=== PATIENT | female | born 1995 | race Caucasian/White ===

== ENCOUNTER → 2022-07-20 | Outpatient (CLI) | payer MEDICAID, BC ==
[2022-07-20 22:33] LABS: HCT 37.6 % (37.2-46.3); HGB 12.2 g/dL (12.0-15.0); MCHC 32.4 g/dL (32.0-37.0); MCV 89.5 fL (80.0-97.0); Mean Platelet Volume 10.5 fL (9.5-12.2); NRBC Per 100 WBC 0 /100 WBCS (0.0-0.0); Platelet Count 258 X 10*3/uL (140-440); WBC 7.93 X 10*3/uL (4.50-10.00)
[2022-07-21] LABS: Progesterone <0.05 ng/mL
[2022-07-21 01:53] LABS: Follicle Stimulating Hormone 7.3 mIU/mL; Luteinizing Hormone 20.1 mIU/mL
[2022-07-21 02:49] LABS: Estradiol 78.2 pg/mL; HCG,Quantitative Serum <3.0 (0.0-6.0)
== END | disposition home or self-care (01) ==
LOC: LABWHC1 14:52
PROVIDERS: ATTEND Obstetrics & Gynecology
DX: N91.2 Amenorrhea, unspecified (principal); N97.0 Female infertility associated with anovulation
CPT/HCPCS: 36415; 82670; 83001; 83002; 84144; 84146; 84439; 84443; 84479; 84702; 85027

== ENCOUNTER → 2022-09-10 | Outpatient (CLI) | payer MEDICAID, BC ==
--- NOTE | 2022-09-10 17:33 | US ---
EXAMINATION TYPE: US transvaginal DATE OF EXAM: 09/10/2022 COMPARISON: NONE CLINICAL INDICATION: Female, 27 years old with history of N93.8 DUB; Irregular periods x couple month s TECHNIQUE: Transvaginal exam only per physician order Date of LMP: 09/07/2022 EXAM MEASUREMENTS: Uterus: 7.2 x 3.4 x 4.0 cm Endometrial Stripe: 0.6 cm Right Ovary: 3.2 x 2.4 x 1.8 cm Left Ovary: 2.8 x 1.7 x 3.2 cm 1. Uterus: anteverted 2. Endometrium: appears wnl 3. Right Ovary: wnl 4. Left Ovary: wnl 5. Bilateral Adnexa: left adnexa - 1.1 x 0.7 x 0.9cm anechoic area seen separate from left ovary 6. Posterior cul-de-sac: wnl Unremarkable appearance of the anteverted uterus and endometrium. Both ovaries are within normal limi ts with normal follicles demonstrated. No free fluid identified. Left adnexal 1.1 cm cystic lesion wh ich is separate from the left ovary. IMPRESSION: 1. Unremarkable appearance of the uterus and endometrium and both ovaries. 2. 1.1 cm cystic lesion within the left adnexa separate from the ovary which may represent a paraovar beau cyst. Follow-up ultrasound in 12 weeks is recommended to assess for stability.
== END | disposition home or self-care (01) ==
LOC: RADUSWWP 16:13
PROVIDERS: ATTEND Obstetrics & Gynecology
DX: N93.8 Other specified abnormal uterine and vaginal bleeding (principal); N83.8 Other noninflammatory disorders of ovary, fallopian tube and broad ligament; R10.2 Pelvic and perineal pain
CPT/HCPCS: 76830

== ENCOUNTER 2023-03-08 06:26 | Day surgery (SDC) | payer MEDICAID, BC ==
[~2023-03-08 06:26] MED LIST: ACETAMINOPHEN TAB 500 MG TAB PO PRN; HEPARIN SODIUM,PORCINE/PF 5,000 UNIT/0.5 ML SYRINGE SQ PRN; Pre Op ABX Message 1 EACH MISC MISCELLANE ONE
[2023-03-08] MEDS ORDERED: DEXAMETHASONE SOD PHOSPHATE 4 MG/ML 1 ML VIAL IV ONE (06:38)
[2023-03-08] MEDS ORDERED: ONDANSETRON 4 MG/2 ML VIAL IVP ONE ×2 (06:38→07:12)
[2023-03-08] MEDS ORDERED: LACTATED RINGERS 1,000 ML IV SCH (06:38)
[2023-03-08] MEDS ORDERED: ONDANSETRON 4 MG/2 ML VIAL ONE (06:59)
[2023-03-08] MEDS ORDERED: diphenhydrAMINE 50 MG/ML 1 ML VIAL ONE (06:59)
[2023-03-08] MEDS ORDERED: HYDROmorphone 0.5 MG/0.5 ML SYRINGE IVP PRN (07:00)
[2023-03-08] MEDS ORDERED: DEXAMETHASONE SOD PHOSPHATE 4 MG/ML 1 ML VIAL IVP ONE (07:13)
[2023-03-08] MEDS ORDERED: FAMOTIDINE 20 MG/2 ML VIAL IVP ONE (07:14)
[2023-03-08] MEDS ORDERED: diphenhydrAMINE 50 MG/ML 1 ML VIAL IVP ONE (07:15)
[2023-03-08] MEDS ORDERED: LIDOCAINE 1% INJ 10MG/ML (20 ML MDV) ONE (07:24)
[2023-03-08] MEDS ORDERED: PROPOFOL 10 MG/ML 20 ML VIAL IV ONE (07:24)
[2023-03-08] MEDS ORDERED: KETOROLAC 15 MG/ML 1 ML VIAL ONE (07:24)
[2023-03-08] MEDS ORDERED: MIDAZOLAM 2 MG/2 ML VIAL ONE (07:24)
[2023-03-08] MEDS ORDERED: fentaNYL (PF) 50 MCG/ML 2 ML AMP ONE (07:24)
[2023-03-08 07:26] VITALS: RESP 16
[2023-03-08] MEDS ORDERED: SODIUM CHLORIDE 0.9% 50 ML with ceFAZolin 2,000 MG IV ONE ×2 (07:29)
--- NOTE | 2023-03-08 07:38 | P.GSHP ---
History of Present Illness H&P Date: 03/08/23 Chief Complaint: Left breast mass 28-year-old female seen in December. Patient with a mass left upper outer breast. Increasing in size. Mild pain at times. Past Medical History Past Medical History: No Reported History Additional Past Medical History / Comment(s): Vertigo, sinus issues, menstraul cramps. History of Any Multi-Drug Resistant Organisms: None Reported Past Surgical History: Orthopedic Surgery Additional Past Surgical History / Comment(s): L ankle repair/hardware since removed. Past Anesthesia/Blood Transfusion Reactions: Postoperative Nausea & Vomiting (PONV) Smoking Status: Never smoker - Past Family History Father Family Medical History: Hypertension Mother Additional Family Medical History / Comment(s): hx of breast and colon cancer maternal side Medications and Allergies Home Medications Medication Instructions Recorded Confirmed Type Cetirizine HCl [Zyrtec] 10 mg PO DAILY 11/26/20 03/08/23 History Naproxen Sodium 550 mg PO BID PRN 03/04/23 03/08/23 History Vit No.179/Iron/Folic 1 tab PO QAM 03/04/23 03/08/23 History [ Tablet] Allergies Allergy/AdvReac Type Severity Reaction Status Date / Time No Known Allergies Allergy Verified 03/08/23 07:07 Surgical - Exam Vital Signs Temp Pulse Resp BP Pulse Ox 98.0 F 92 16 120/81 99 03/08/23 07:03 03/08/23 07:03 03/08/23 07:03 03/08/23 07:03 03/08/23 07:03 Physical exam: General: Well-developed, well-nourished HEENT: Normocephalic, sclerae nonicteric Right breast: No masses, no adenopathy Left breast: Lipomatous mass upper outer quadrant near axilla Abdomen: Nontender, nondistended Extremities: No edema Neuro: Alert and oriented Assessment and Plan (1) Left breast mass Narrative/Plan: Will proceed with excision left breast mass this time. Current Visit: Yes Status: Acute Code(s): N63.20 - UNSPECIFIED LUMP IN THE LEFT BREAST, UNSPECIFIED QUADRANT SNOMED Code(s): 89055539
[2023-03-08] MEDS ORDERED: BUPIVACAINE (PF) 0.5% 30 ML VIAL SQ ONE (07:53)
[2023-03-08] MEDS ORDERED: NALOXONE 0.4 MG/ML 1 ML VIAL IV PRN (08:29)
--- NOTE | 2023-03-08 08:32 | P.OP ---
Date of Procedure: 03/08/23 Procedure(s) Performed: PREOPERATIVE DIAGNOSIS: Left breast mass POSTOPERATIVE DIAGNOSIS: Same PROCEDURE: Excision left breast mass SURGEON: Osmin EBL: 2 mL ANESTHESIA: Gen. COMPLICATIONS: None OPERATIVE PROCEDURE: Patient place never table in supine position. The patient's left breast was prepped and draped sterilely. A curvilinear upper outer quadrant incision was made along a skin fold. Subcutaneous tissues were divided using electrocautery. The lipomatous mass was encountered and fully excised using a combination of blunt dissection and cautery. This measured 5 x 3 cm. This was sent to pathology. The subcutaneous tissues closed using 3-0 Vicryl sutures. Skin closed using running 4-0 Monocryl subcu stitch. Skin glue applied. DISPOSITION: Stable to recovery room
[2023-03-08 08:36] VITALS: TEMP 97.1
[2023-03-08 10:10] VITALS: BP 118/78; PULSE 71
== END 2023-03-08 09:41 | disposition home or self-care (01) ==
LOC: OR 06:26
PROVIDERS: ATTEND Surgery
DX: N63.20 Unspecified lump in the left breast, unspecified quadrant (principal); N63.21 Unspecified lump in the left breast, upper outer quadrant
CPT/HCPCS: 11406; 19120; 81025; 88305; J2250; J1200; J1100; J2405; J0690; J2001; J3010; J3490; J1885; J2704; J1644; J0665

== ENCOUNTER → 2023-11-08 | Outpatient (CLI) | payer MEDICAID, BC ==
--- NOTE | 2023-11-08 10:20 | USB ---
Reason for Exam: Clinical finding. Indicated Problems: Skin thickening or retraction of both sides for 1 Month(s). Technique: Method: Targeted. Doppler: Color. Patient Position: Supine. Prior Study Comparison: No prior studies available for comparison. Findings: The lower section of the breast of both breasts, the axilla of both breasts and the retroareolar of both breasts were scanned. There is some diffuse mild edema within the subcutaneous tissues greater along the inferior breasts. Underlying suspicious abnormalities are clearly identified. Within the left breast approximately 4:00 position 8 cm the nipple a vague hypodensity may be present. This is hard to discern a background of may be persistent. Short-term follow-up is recommended. Reassessed following the , approximately 13 weeks. If this remains persistent on ultrasound at that time, consideration for mammography be performed. Note that mammography is limited due to changes. Findings appear more compatible with bilateral breast edema. Bilateral inflammatory carcinoma considered unlikely.. Clinical management recommended. Surgical consultation could be performed for changing clinical findings. Overall Assessment: Probably benign, BI-RAD 3 Management: Diagnostic Breast Ultrasound of the left breast in 3 months. A clinical breast exam by your physician is recommended on an annual basis and results should be correlated with mammographic findings. This exam should not preclude additional follow-up of suspicious palpable abnormalities. Results were given to the patient verbally at the time of exam. Electronically signed and approved by: Suleman Quezada D.O. Radiologis
== END | disposition home or self-care (01) ==
LOC: RADUSWWP 09:25
PROVIDERS: ATTEND Obstetrics & Gynecology
DX: R68.89 Other general symptoms and signs (principal); R23.4 Changes in skin texture

== ENCOUNTER 2024-02-01 04:34 | Inpatient (IN) | payer MEDICAID ==
[2024-02-01] MEDS ORDERED: TERBUTALINE 1 MG/ML VIAL SQ PRN (05:01)
[2024-02-01] MEDS ORDERED: miSOPROStoL 200 MCG TAB PO PRN (05:01)
[2024-02-01] MEDS ORDERED: CARBOPROST TROMETHAMINE 250 MCG/ML 1 ML AMP IM PRN (05:01)
[2024-02-01] MEDS ORDERED: OXYTOCIN 10 UNIT/ML 1 ML VIAL IM PRN (05:01)
[2024-02-01] MEDS ORDERED: TRANEXAMIC 1,000 MG/100ML-NACL 1,000 MG in EMPTY BAG 1 BAG IV PRN (05:01)
[2024-02-01] MEDS ORDERED: miSOPROStoL 200 MCG TAB RECTAL PRN (05:01)
[2024-02-01] MEDS: LACTATED RINGERS 1,000 ML IV SCH (05:25)
[2024-02-01 05:45] LABS: Basophils # (A) 0.1 k/uL (0-0.2); Basophils % (A) 0 %; Eosinophils # (A) 0.1 k/uL (0-0.7); Eosinophils % (A) 1 %; HCT 38.4 % (34.0-46.0); HGB 13.1 gm/dL (11.4-16.0); Lymphocytes # (A) 2.5 k/uL (1.0-4.8); Lymphocytes % (A) 22 %; MCH 30.8 pg (25.0-35.0); MCHC 34.1 g/dL (31.0-37.0); MCV 90.4 fL (80.0-100.0); Mean Platelet Volume 8.7; Monocytes # (A) 0.6 k/uL (0-1.0); Monocytes % (A) 5 %; Neutrophils # (A) 8.2 k/uL (1.3-7.7); Neutrophils % (A) 71 %; Platelet Count 233 k/uL (150-450); RBC 4.25 m/uL (3.80-5.40); RDW 13.4 % (11.5-15.5); WBC 11.6 k/uL (3.8-10.6)
--- NOTE | 2024-02-01 08:06 | P.HPOB ---
History of Present Illness H&P Date: 02/01/24 Chief Complaint: labor 28 year old at 39 weeks 3 days presents in labor and with SROM. Her cervix is 2/70/-2 and she is jeremiah irregularly. heart tones category 1. Review of Systems All systems: negative Constitutional: Denies chills, Denies fever Eyes: denies blurred vision, denies pain Ears, nose, mouth and throat: Denies headache, Denies sore throat Cardiovascular: Denies chest pain, Denies shortness of breath Respiratory: Denies cough Gastrointestinal: Denies abdominal pain, Denies diarrhea, Denies nausea, Denies vomiting Genitourinary: Denies dysuria, Denies hematuria Musculoskeletal: Denies myalgias Integumentary: Denies pruritus, Denies rash Neurological: Denies numbness, Denies weakness Psychiatric: Denies anxiety, Denies depression Endocrine: Denies fatigue, Denies weight change Past Medical History Past Medical History: No Reported History Additional Past Medical History / Comment(s): Vertigo, sinus issues, menstraul cramps. History of Any Multi-Drug Resistant Organisms: None Reported Past Surgical History: Orthopedic Surgery Additional Past Surgical History / Comment(s): L ankle repair/hardware since removed. Past Anesthesia/Blood Transfusion Reactions: Postoperative Nausea & Vomiting (PONV) Past Psychological History: No Psychological Hx Reported Smoking Status: Never smoker Past Alcohol Use History: None Reported, Occasional Past Drug Use History: None Reported - Past Family History Father Family Medical History: Hypertension Mother Additional Family Medical History / Comment(s): hx of breast and colon cancer maternal side Medications and Allergies Home Medications Medication Instructions Recorded Confirmed Type Cetirizine HCl [Zyrtec] 10 mg PO DAILY 11/26/20 02/01/24 History Vit No.179/Iron/Folic 1 tab PO QAM 03/04/23 02/01/24 History [ Tablet] Aspirin 1 tab PO DAILY 02/01/24 02/01/24 History Allergies Allergy/AdvReac Type Severity Reaction Status Date / Time No Known Allergies Allergy Verified 02/01/24 04:39 Exam Osteopathic Statement: *. No significant issues noted on an osteopathic structural exam other than those noted in the History and Physical/Consult. Vital Signs Temp Pulse Resp BP Pulse Ox 02/01/24 05:06 97.1 F L 110 H 16 131/93 99 02/01/24 04:38 97.1 F L 110 H 15 131/93 99 Intake and Output 01/31/24 02/01/24 02/01/24 22:59 06:59 14:59 Other: # Voids 1 Weight 91.626 kg Heart: Regular rate and rhythm Lungs: Clear to auscultation bilaterally Abdomen: Soft, nontender Extremities: Negative Homans sign Results Result Diagrams: 02/01/24 05:00 Abnormal Lab Results - Last 24 Hours (Table) 02/01/24 Range/Units 05:00 WBC 11.6 H (3.8-10.6) k/uL Neutrophils # 8.2 H (1.3-7.7) k/uL Assessment and Plan (1) Normal labor Current Visit: Yes Status: Acute Code(s): O80 - ENCOUNTER FOR FULL-TERM UNCOMPLICATED DELIVERY; Z37.9 - OUTCOME OF DELIVERY, UNSPECIFIED SNOMED Code(s): 38214126 Plan: 1. admit to [facility] 2. expectant management 3. anticipate normal vaginal delivery
[2024-02-01] MEDS: OXYTOCIN 30 UNITS/500 ML NS 30 UNIT in SALINE 1 500ML.BAG IV SCH (08:38)
[2024-02-01] MEDS ORDERED: SODIUM CHLORIDE 0.9% 250 ML BAG ONE (10:19)
[2024-02-01] MEDS ORDERED: fentaNYL (PF) 50 MCG/ML 5 ML AMP ONE (10:19)
[2024-02-01] MEDS ORDERED: ROPIVACAINE 5 MG/ML 30 ML VIAL ONE (10:19)
[2024-02-01] MEDS: METHYLERGONOVINE 0.2 MG/ML 1 ML AMP IM PRN (19:39)
[2024-02-01] MEDS: LIDOCAINE 0.5% (PF) 5 MG/ML (50 ML SDV) SQ PRN (19:50)
[2024-02-01] MEDS ORDERED: diphenhydrAMINE 50 MG/ML 1 ML VIAL IVP PRN ×2 (19:51)
[2024-02-01] MEDS ORDERED: LANOLIN CREAM 1 GM TUBE TOPICAL PRN (19:51)
[2024-02-01] MEDS ORDERED: BENZOCAINE/MENTHOL SPRAY 1 GM/SPRAY AEROSOL TOPICAL PRN (19:51)
[2024-02-01] MEDS ORDERED: HYDROCORTISONE 2.5% RECTAL CREAM 30 GM TUBE RECTAL PRN (19:51)
[2024-02-01] MEDS ORDERED: ZOLPIDEM 5 MG TAB PO PRN (19:51)
[2024-02-01] MEDS ORDERED: SIMETHICONE 80 MG CHEWABLE PO PRN (19:51)
[2024-02-01] MEDS ORDERED: diphenhydrAMINE 50 MG CAP PO PRN (19:51)
[2024-02-01] MEDS ORDERED: diphenhydrAMINE 25 MG CAP PO PRN (19:51)
[2024-02-01] MEDS: ONDANSETRON 4 MG/2 ML VIAL IVP STA (20:33)
[2024-02-01] MEDS: SENNOSIDES-DOCUSATE SODIUM 1 EACH TAB PO SCH (20:40)
[2024-02-01] MEDS: IBUPROFEN 800 MG TAB PO PRN (21:16)
[2024-02-02] MEDS: ACETAMINOPHEN TAB 500 MG TAB PO PRN (00:12)
[2024-02-02] MEDS: MEASLES-MUMPS-RUBELLA VACC/PF 12,500 UNIT/0.5 ML VIAL SQ ONE (05:44)
[2024-02-02 05:58] LABS: Basophils % (A) 0 %; Eosinophils % (A) 0 %; HCT 28.5 % (34.0-46.0); Lymphocytes # (A) 2.1 k/uL (1.0-4.8); Lymphocytes % (A) 12 %; MCH 30.5 pg (25.0-35.0); MCHC 34.1 g/dL (31.0-37.0); MCV 89.5 fL (80.0-100.0); Mean Platelet Volume 8.4; Monocytes # (A) 0.8 k/uL (0-1.0); Monocytes % (A) 4 %; Neutrophils # (A) 14.5 k/uL (1.3-7.7); Neutrophils % (A) 83 %; Platelet Count 225 k/uL (150-450); RBC 3.18 m/uL (3.80-5.40); RDW 13.9 % (11.5-15.5); WBC 17.6 k/uL (3.8-10.6)
[2024-02-02 06:00] LABS: HGB 9.7 gm/dL (11.4-16.0)
--- NOTE | 2024-02-02 07:59 | P.PROBDLV ---
Vaginal Delivery Note - . Vaginal Delivery Note: 28 year old at 39 weeks 3 days presents in labor and with SROM At 3:30 AM. Her cervix is 2/70/-2 and she is jeremiah irregularly. heart tones category 1.Couple hours later she was 3 cm dilated 100% effaced and -2 station Pitocin augmentation was started. She slowly progressed throughout the day and did get an epidural was comfortable. Her cervix completely dilated at 1740. She pushed, and delivered a viable female infant over intact perineum under e pidural anesthesia at 192. Head delivered OA, anterior shoulder delivered gentle downward guidance. A posterior shoulder and rest of body. Nose and mouth bulb suctioned, cord clamped and cut, placed on mother's abdomen. Apgars 9, 9, weight 6 pounds 6.8 ounces. Placenta delivered spontaneously, intact with three-vessel cord at 192. Vagina, cervix, perineum inspected. Second-degree midline laceration was repaired with 3-0 Vicryl. Estimated blood loss 250 mL. Mother had some uterine atony. First I drained the bladder and then continued was on the uterus and clearing the uterus of clots and debris she was then given one dose of Methergine. The bleeding resolved soon after this dose. Mother and baby in stable condition.
--- NOTE | 2024-02-02 08:03 | P.DS ---
Providers Date of admission: 02/01/24 04:55 Expected date of discharge: 02/02/24 Attending physician: Ciera Bailey Primary care physician: Stated None - Discharge Diagnosis(es) (1) Normal labor Current Visit: Yes Status: Resolved (2) Normal vaginal delivery Current Visit: Yes Status: Acute (3) Acute blood loss anemia Current Visit: Yes Status: Acute (4) hemorrhage Current Visit: Yes Status: Acute Hospital Course: Patient presented in labor. She underwent normal vaginal delivery and had a mild hemorrhage that was resolved with draining her bladder and Methergine. She does now have acute blood loss anemia down to 9.7 from 13. She is asymptomatic from this anemia. Patient denies nausea, vomiting, chest pain, shortness of breath or calf pain. She is ambulating and voiding without difficulty. Patient will be discharged home day #1 in stable condition to follow-up with me in 6 weeks. Plan - Discharge Summary New Discharge Prescriptions: New Ibuprofen [Motrin] 800 mg PO Q8HR PRN #30 tab PRN Reason: Pain Scale 1 To 3 No Action Vit No.179/Iron/Folic [ Tablet] 1 tab PO QAM Aspirin 1 tab PO DAILY Cetirizine HCl [Zyrtec] 10 mg PO DAILY Discharge Medication List Cetirizine HCl [Zyrtec] 10 mg PO DAILY 11/26/20 [History] Vit No.179/Iron/Folic [ Tablet] 1 tab PO QAM 03/04/23 [History] Aspirin 1 tab PO DAILY 02/01/24 [History] Ibuprofen [Motrin] 800 mg PO Q8HR PRN #30 tab 02/02/24 [Rx] Follow up Appointment(s)/Referral(s): Ciera Bailey DO [Doctor of Osteopathic Medicine] - 03/14/24 11:30 am Discharge Disposition: HOME SELF-CARE
[2024-02-03 07:56] VITALS: BP 121/73; PULSE 90; RESP 17; TEMP 97.6
== END 2024-02-03 09:10 | disposition home or self-care (01) | DRG 806 ==
LOC: FBPOP 04:34 → 4FBP 04:55
PROVIDERS: ADMIT Obstetrics & Gynecology; ATTEND Obstetrics & Gynecology
PROC: 10E0XZZ Delivery of Products of Conception, External Approach (ICD-10-PCS; principal; 2024-02-01)
PROC: 0KQM0ZZ Repair Perineum Muscle, Open Approach (ICD-10-PCS; 2024-02-01)
DX: O70.1 Second degree perineal laceration during delivery (principal); D62 Acute posthemorrhagic anemia; Z37.0 Single live birth; O72.1 Other immediate postpartum hemorrhage; O90.81 Anemia of the puerperium; Z3A.39 39 weeks gestation of pregnancy; Z79.82 Long term (current) use of aspirin
CPT/HCPCS: 84112; 85025; 86850; 86900; 86901; 99213

== ENCOUNTER 2024-02-06 19:14 | Outpatient (CLI) | payer MEDICAID, BC ==
[2024-02-06 19:58] LABS: Basophils % (A) 0 %; Eosinophils # (A) 0.3 k/uL (0-0.7); Eosinophils % (A) 3 %; HCT 28.1 % (34.0-46.0); HGB 9.2 gm/dL (11.4-16.0); Lymphocytes # (A) 2.7 k/uL (1.0-4.8); Lymphocytes % (A) 24 %; MCH 29.8 pg (25.0-35.0); MCHC 32.8 g/dL (31.0-37.0); MCV 90.8 fL (80.0-100.0); Mean Platelet Volume 7.3; Monocytes # (A) 0.4 k/uL (0-1.0); Monocytes % (A) 4 %; Neutrophils # (A) 7.7 k/uL (1.3-7.7); Neutrophils % (A) 68 %; Platelet Count 365 k/uL (150-450); RDW 13.5 % (11.5-15.5); WBC 11.4 k/uL (3.8-10.6)
[2024-02-06 20:10] LABS: ALT 41 U/L (4-34); AST 45 U/L (14-36); African American GFR (CKD) >90 (>60 ml/min/1.73 sqM); Blood Urea Nitrogen 13 mg/dL (7-17); LDH 312 U/L (120-246); Non-African American GFR(CKD) >90 (>60 ml/min/1.73 sqM); Uric Acid 5.3 mg/dL (3.7-7.4)
[2024-02-06 20:44] VITALS: BP 127/86; PULSE 112; RESP 16; TEMP 96.4
--- NOTE | 2024-02-17 09:57 | P.MSEPDOC ---
Presenting Problems - Arrival Data Date of Arrival on Unit: 02/06/24 Time of Arrival on Unit: 19:14 Mode of Transport: Ambulatory - Complaint OB-Reason for Admission/Chief Complaint: Headache, Dizziness Comment: pt. is 6 days post , pt. was on 02/01/24, pt. present to unit due to headace rating 4/10- dull pressure, and dizzyness and lightheaded. Medical History - Gestational Age Gestational Age by CURT (wks/days): 40 Weeks and 5 Days Review of Systems - Review of Systems Constitutional: No problems Breast: No problems ENT: No problems Cardiovascular: No problems Respiratory: No problems Gastrointestinal: No problems Genitourinary: No problems Musculoskeletal: No problems Neurological: Dizziness Skin: No problems Vital Signs - Temperature Temperature: 96.4 F Temperature Source: Temporal Artery Scan - Pulse Pulse Oximetery Pulse Rate: 112 Pulse Assessment Method: Automatic Cuff - Respirations Respiratory Rate: 16 Oxygen Delivery Method: Room Air O2 Sat by Pulse Oximetry: 100 - Blood Pressure Right Arm Blood Pressure: 127/86 Blood Pressure Mean: 99 Blood Pressure Source: Automatic Cuff Physician Notification - Physician Notified Physician Notified Date: 02/06/24 Physician Notified Time: 20:19 Physician: Oanh Garcia New Order Received: Yes (discharge home, follow up in office this week with Dr. Bailey) - Notification Comment Comment: Vitals and PIH labs reviewed, orders to have pt. start iron 325mg BID with some orange juice, and stool softners, and increase fluid and food intake, and have pt. follow up in office this week with Dr. Bailey Maternal Triage Index - Maternal Triage Index Presenting for scheduled procedure w/no complaint: No - Stat/Priority 1 Stat Priority 1: No - Urgent/Priority 2 Urgent Priority 2: No - Prompt/Priority 3 Prompt Priority 3: No - Non-Urgent/Priority 4 Non-Urgent Priority 4: Yes Criteria Met for Priority 4: pt. is 6 days post , pt. did have a PPH after her delivery pt. was on 02/01/24, pt. present to unit due to headace rating 4/10- dull pressure, and dizzyness and lightheaded. Disposition - Disposition OB Disposition: Discharge to home Discharge Date: 02/06/24 Discharge Time: 20:30 I agree with the RN Medical Screening Exam: Yes Case reviewed; plan agreed upon as documented in EMR&OBIX.: Yes Diagnosis: OTHER SPECIFIED COMPLICATIONS OF LABOR AND DELIVERY
== END 2024-02-06 20:30 | disposition home or self-care (01) ==
LOC: FBPOP 19:14
PROVIDERS: ATTEND Obstetrics & Gynecology Obstetrics
CPT/HCPCS: 36415; 82565; 83615; 84450; 84460; 84520; 84550; 85025; 99215